=== PATIENT | female | born 1990 | race Asian ===

== ENCOUNTER 2018-05-08 19:27 | Emergency (ER) | payer BC ==
[~2018-05-08] VITALS: Ht 165.1 cm; Wt 56.7 kg
[2018-05-08 19:54] VITALS: Ht 165.1 cm; Wt 56.7 kg
[2018-05-08 21:34] VITALS: BP 117/79
== END 2018-05-08 21:35 | disposition home or self-care (01) ==
LOC: ED 19:27
DX: S61.012A Laceration without foreign body of left thumb without damage to nail, initial encounter (principal); W26.8XXA Contact with other sharp object(s), not elsewhere classified, initial encounter; Y93.89 Activity, other specified; Y92.89 Other specified places as the place of occurrence of the external cause; Y99.8 Other external cause status
CPT/HCPCS: 90715; J2001

== ENCOUNTER 2018-05-16 10:00 | Emergency (ER) | payer BC ==
[~2018-05-16] VITALS: Ht 165.1 cm; Wt 55.9 kg
[2018-05-16 10:11] VITALS: BP 102/58; Ht 165.1 cm; Wt 55.9 kg
== END 2018-05-16 10:48 | disposition home or self-care (01) ==
LOC: ED 10:00
DX: S61.412D Laceration without foreign body of left hand, subsequent encounter (principal); X58.XXXD Exposure to other specified factors, subsequent encounter